=== PATIENT | female | born 1970 | race Caucasian/White ===

== ENCOUNTER 2017-04-16 21:59 | Emergency (ER) | payer OTHER ==
[~2017-04-16] VITALS: Ht 149.9 cm; Wt 86.3 kg
[~2017-04-16 21:59] MED LIST: ALBUAER2 INH; BUPRTAB51 PO; CYM30 PO; DSY/150 PO; HYDR50CA2 PO; NCDT21 TD; NRN600 PO
[2017-04-16 22:01] VITALS: TEMP 37.1; Ht 149.9 cm; Wt 86.3 kg
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
--- NOTE | 2017-04-16 22:30 | DIAGNOSTIC IMAGING REPORT ---
CT SCAN OF THE BRAIN WITHOUT IV CONTRAST CLINICAL HISTORY: Head injury. COMPARISON STUDY: CT of the brain dated 03/05/2015. TECHNIQUE: Unenhanced axial CT scan of the brain is performed from the vertex to the skull base. Automated dose control exposure was utilized. A dose lowering technique was utilized adhering to the principles of ALARA. CT DOSE: 537.48 mGy.cm FINDINGS: Brain parenchyma: The brain parenchyma is normal in appearance. There is no hemorrhage, mass effect, or evidence of acute territorial ischemia by CT criteria. Gardner-white matter is preserved. No extra-axial fluid collection is seen. Ventricles, sulci, cisterns: Normal in configuration. Intracranial vasculature: The visualized intracranial vasculature at the skull base is normal in appearance. Calvarium: There is no depressed calvarial fracture. Soft tissues: There is minimal left occipital scalp contusion. Sinuses and mastoids: Mucosal thickening is seen in the left sphenoid sinus and the ethmoid sinuses. The remaining visualized paranasal sinuses are clear. The mastoid air cells are well pneumatized. Orbits: The bony orbits are grossly intact. IMPRESSION: No acute intracranial abnormality. Electronically signed by: Kevin Clifford M.D. 04/16/2017 10:29 PM Dictated Date/Time: 04/16/2017 10:26 PM
[2017-04-16] MEDS ORDERED: IBUPROFEN 800 MG TAB PO STA (22:42)
[2017-04-16] MEDS ORDERED: KLN5X PO (22:48)
[2017-04-16] MEDS ORDERED: ZOLP10TA6 PO (22:48)
[2017-04-16] MEDS ORDERED: CYM60 PO (22:48)
[2017-04-16] MEDS ORDERED: CYM/30 PO (22:48)
[2017-04-16] MEDS ORDERED: TPM/50 PO (22:48)
[2017-04-16 22:58] VITALS: BP 99/60; PULSE 75; O2SAT 92
== END 2017-04-16 23:00 | disposition home or self-care (01) ==
LOC: C.EDB 22:00
DX: S09.90XA Unspecified injury of head, initial encounter (principal); X99.8XXA Assault by other sharp object, initial encounter; J45.909 Unspecified asthma, uncomplicated; F32.9 Major depressive disorder, single episode, unspecified; E11.9 Type 2 diabetes mellitus without complications; F17.210 Nicotine dependence, cigarettes, uncomplicated; Z83.3 Family history of diabetes mellitus; Z82.49 Family history of ischemic heart disease and other diseases of the circulatory system; Z84.1 Family history of disorders of kidney and ureter; Z79.899 Other long term (current) drug therapy